=== PATIENT | male | born 1980 | race Caucasian/White ===

== ENCOUNTER 2019-08-03 08:37 | Emergency (ER) | payer OTHER, SELFPAY ==
[2019-08-03] VITALS (11 sets, daily range): BP systolic 127–143; BP diastolic 77–96; PULSE 99–135; RESP 20–34; TEMP 36.6–36.7; O2SAT 95–99; BMI 25.0
--- NOTE | 2019-08-03 08:57 | PC.NURSE ---
right jaw with swelling, redness right side of neck, hard to palpate.
[2019-08-03] MEDS: SODIUM CHLORIDE 0.9% 1,000 ML 1000 ML IV ×2 (09:09→14:56)
[2019-08-03] MEDS: DEXAMETHASONE 10 MG/ML VIAL IV (09:09)
[2019-08-03 09:13] LABS: Hemoglobin 15.7 g/dL (13.5-17.5); Mean Corpuscular HGB Conc 34.9 % (30-36); Mean Corpuscular Hemoglobin 32.8 PG (26-34); Mean Corpuscular Volume 93.8 fL (80-100); Platelet Count 433 X10^3/uL (150-400); Red Blood Cell Count 4.79 X10^6/uL (4.5-5.9); Red Cell Distribution Width 12.7 % (11.6-14.8); White Blood Cell Count 29.7 X10^3/uL (4.5-11.0)
[2019-08-03 09:14] LABS: Add Manual Diff / Slide Review YES
[2019-08-03 09:18] LABS: Alanine Aminotransferase 17 IU/L (<50); Albumin 4.7 g/dL (3.5-5.0); Albumin Globulin Ratio 1.2 (1.0-2.8); Alkaline Phosphatase 114 U/L (38-126); Aspartate Aminotransferase 45 IU/L (17-59); BUN Creatinine Ratio 11.1 (6-22); Bilirubin Total 1.6 mg/dL (0.2-1.3); Blood Urea Nitrogen 10 mg/dL (9-20); Calcium 9.9 mg/dL (8.4-10.2); Carbon Dioxide 28 mmol/L (22-32); Chloride 96 mmol/L (98-107); Estimated Glomerular Filt Rate > 60.0 mL/min (>60); Globulin 3.9 g/dL (1.7-4.1); Glucose 143 mg/dL (70-100); HEMOLYSIS < 15 (0-50); Potassium 3.6 mmol/L (3.4-5.1); Sodium 136 mmol/L (137-145); Total Protein 8.6 g/dL (6.3-8.2)
[2019-08-03 09:36] LABS: Neutrophils Absolute Manual 24948 /uL (3000-5900); RBC Morphology Normal Morphology; Total Cells Counted 100
--- NOTE | 2019-08-03 09:41 | ED.DENTAL ---
HPI - Dental/Oral General Chief complaint: Dental/Oral Stated complaint: infected abcess Time Seen by Provider: 08/03/19 09:00 Source: patient Mode of arrival: Ambulatory History of Present Illness HPI Narrative: Patient comes emergency department complaining swelling below his right mandible that has been worsening over the last few days. Patient states he has a severely decayed right mandibular molar, which has been bothering him a lot over the last 3 weeks. He states he went through 1 course of antibiotics and the pain and swelling dissipated for about a week afterward. However, he states that about 3 days ago, the symptoms began to recur, and so he saw his doctor on [facility] and was started on antibiotics yesterday. Patient states he has had 2 doses of each of his antibiotics, plus an IM dose yesterday, but that the swelling seems to be worsening. Patient states he noticed that the side of his neck and beneath his mandible has become hard and it hurts to swallow. He states he is able to manage his secretions okay, but he feels that the swollen area is impinging on his airway somewhat. Related Data Home Medications Medication Instructions Recorded Confirmed amoxicillin-pot clavulanate 1 tab PO BID 08/03/19 08/03/19 metronidazole 500 mg PO TID 08/03/19 08/03/19 ondansetron 4 mg PO Q8H PRN 08/03/19 08/03/19 Allergies Allergy/AdvReac Type Severity Reaction Status Date / Time No Known Drug Allergies Allergy Verified 08/03/19 08:46 Review of Systems Constitutional Constitutional: Denies chills, Denies fatigue, Denies fever(s), Denies frequent falls, Denies lethargy and Denies weakness Eyes Eyes: Denies change in vision, Denies eye discharge, Denies irritation and Denies loss of vision ENT Ears, Nose, Mouth, and Throat: Denies change in voice, Denies dizziness, Reports neck pain, Denies sore throat and Reports throat swelling Cardiovascular Cardiovascular: Denies chest pain, Denies irregular heart rhythm, Denies lightheadedness, Denies palpitations, Denies dyspnea, Denies dyspnea on exertion and Denies orthopnea Respiratory Respiratory: Denies cough, Denies dyspnea, Denies dyspnea on exertion and Denies wheezing Gastrointestinal Gastrointestinal: Denies abdominal pain, Denies change in bowel habits, Denies diarrhea, Denies nausea and Denies vomiting Genitourinary Genitourinary: Denies hematuria, Denies flank pain, Denies urinary incontinence and Denies urinary urgency Musculoskeletal Musculoskeletal: Denies back pain, Denies muscle weakness, Reports neck pain, Denies numbness and Denies tingling Integumentary/Breasts Skin/Breast: Denies pruritus, Denies erythema, Denies rash and Denies wounds Neurologic Neurologic: Denies behavioral changes, Denies confusion, Denies dizziness, Denies frequent falls, Denies loss of vision, Denies numbness, Denies tingling and Denies weakness Psychiatric Psychiatric: Denies anxiety, Denies behavioral changes, Denies confusion, Denies depression, Denies homicidal ideation and Denies suicidal ideation Endocrine Endocrine: Denies fatigue, Denies flushing and Denies palpitations Hematologic/Lymphatic Hematologic/Lymphatic: Denies easy bruising Allergic/Immunologic Allergic/Immunologic: Denies urticaria, Reports throat swelling and Denies wheezing Patient History Medical History Healthy adult (Acute) Social History Smoking Status: Current every day smoker Smoking Status: Current every day smoker Alcohol type: beer Substance Use Type: marijuana Exam Narrative Exam Narrative: HEENT exam continued: Patient has marked edema and induration with mild erythema over his right mandibular area extending into his right lateral neck. The maxillary area is not involved. Patient has trismus and is not able to open his mouth and separate his teeth more than a cm. As such, the floor of his mouth is not able to be examined. However, there is no obvious elevation of his tongue. The patient is handling his secretions well and voice is normal. Very firm induration is noted inferior to the patient's mandible and over his lateral neck on the right, extending to just posterior to the inferior portion of his right ear. No fluctuance is noted. Initial Vital Signs Initial Vital Signs: Vital Signs Temperature 97.8 F 08/03/19 08:46 Pulse Rate 135 H 08/03/19 08:46 Respiratory Rate 20 08/03/19 08:46 Blood Pressure 127/89 08/03/19 08:46 Pulse Oximetry 99 08/03/19 08:46 Const General: cooperative and well developed Nutritional Appearance: well nourished Orientation: alert, awake, oriented x3 and not confused [facility] Head: normocephalic and atraumatic Ears: external ears normal Nose: external nose normal and No nasal discharge Face and sinus: sinuses nontender, no sinus tenderness and No dry mucous membranes Mouth: oral mucosae normal and moist mucous membranes Teeth and gingiva: dentition normal Eyes General: appearance normal, both eyes and all related structures Eyelids: eyelids normal Conjunctivae: conjunctivae normal Sclera: sclerae normal Pupils: PERRL EOM: EOM intact bilaterally Neck Neck: trachea midline, No lymphadenopathy, No midline deformity and No JVD Lymphatic: No lymphedema Other: No stridor. No tracheal deviation. Patient has induration of the right lateral neck, as noted above. Chest Chest: normal inspection of the chest Resp Effort & Inspection: normal respiratory effort, able to speak in complete sentences, no respiratory distress and no use of accessory muscles Auscultation: clear to auscultation bilaterally, no rales, no rhonchi and no wheezes Other: The patient is in no distress. He is moving air well and voice is normal. Cardio Rate: regular rate Rhythm: regular rhythm Heart Sounds: no click, no gallops, no murmurs and no rubs Pulses: normal peripheral pulses GI Inspection: non-distended Palpation: soft, no hepatosplenomegaly, No guarding, No pulsatile mass and No tender Back/Spine/Pelvis Back: No CVA tenderness Cervical Spine: cervical ROM normal and No pain with cervical ROM Thoracic/Lumbar Spine: thoracic and lumbar spine normal to inspection Skin General: no rashes or lesions noted, No jaundice and No petechiae Neuro General: alert, oriented x3, gait normal and no focal motor deficits Speech: speech normal Extrem General: full ROM, no clubbing, cyanosis or edema, no pedal edema and no calf tenderness Psych Appearance: well kempt Mental Status: mental status grossly normal Attitude: cooperative Thought Content: normal and suicidality Judgment: judgment good Course Course Course Narrative: The patient had no airway compromise at this time, and was handling secretions well with normal phonation, but I was concerned about the amount of induration and the extent of the patient's findings on exam. Due to the proximity the patient's airway, he was given IV Decadron and I ordered IV Unasyn for the patient, as well. He was sent for a contrast CT of his neck to get a better idea of the extent of abscess. This did show extensive soft tissue swelling and a 7 by 3-1/2 by 3.5 cm abscess surrounding the mandible and involving the submandibular area and lateral neck. There was noted to be some tracheal deviation on CT, though the airway was patent. The patient remained stable throughout his stay in the emergency department. I spoke with Dr. Buck of ENT, who stated that the patient would be better off going to somewhere with oral maxillofacial surgery, so I spoke with Dr. Walter at [facility] and he did agree to accept the patient in transfer. The patient remained stable throughout his stay in the emergency department, and did not have any further progression of the swelling or the airway discomfort. Orders Ordered: Discontinued Medications Dexamethasone (Decadron) 10 mg IV NOW ONE Stop: 08/03/19 09:03 Last Admin: 08/03/19 09:09 Dose: 10 mg Documented by: VON Sodium Chloride (Normal Saline 0.9%) 1,000 mls @ 1,000 mls/hr IV BOLUS ONE Stop: 08/03/19 10:01 Last Infusion: 08/03/19 10:33 Dose: 0 mls/hr Documented by: Admin: 08/03/19 09:09 Dose: 1,000 mls/hr Documented by: VON Ampicillin Sodium/Sulbactam (Sodium 3 gm/ Sodium Chloride) 100 mls @ 100 mls/hr IV NOW ONE Stop: 08/03/19 09:50 Last Infusion: 08/03/19 12:41 Dose: 0 mls/hr Documented by: Admin: 08/03/19 10:32 Dose: 100 mls/hr Documented by: VON Sodium Chloride (Normal Saline 0.9%) 1,000 mls @ 1,000 mls/hr IV BOLUS ONE Stop: 08/03/19 15:23 Last Admin: 08/03/19 14:56 Dose: 1,000 mls/hr Documented by: VON Lorazepam (Ativan) 0.5 mg IV NOW ONE Stop: 08/03/19 14:48 Last Admin: 08/03/19 14:57 Dose: 0.5 mg Documented by: VON Vital Signs Vital signs: Vital Signs - 8 hr 08/03/19 08:46 08/03/19 10:16 08/03/19 10:50 Temperature 97.8 F Pulse Rate 135 H 99 H 99 H Respiratory Rate 20 34 H 26 H Blood Pressure 127/89 Blood Pressure [Right Arm] 133/81 138/86 Pulse Oximetry 99 99 95 08/03/19 11:20 08/03/19 11:50 08/03/19 12:20 Temperature Pulse Rate 99 H 107 H 107 H Respiratory Rate 22 23 26 H Blood Pressure Blood Pressure [Right Arm] 133/83 136/86 129/81 Pulse Oximetry 95 95 95 08/03/19 12:50 08/03/19 13:20 08/03/19 13:50 Temperature Pulse Rate 106 H 102 H 100 H Respiratory Rate 27 H 23 25 H Blood Pressure Blood Pressure [Right Arm] 135/90 134/83 143/96 H Pulse Oximetry 95 95 95 MDM - Dental/Oral Medical Records Attestation: I reviewed the patient's medical records. Lab Data Attestation: I reviewed the patient's lab results. Result diagrams: 08/03/19 08:51 08/03/19 08:51 Labs: Lab Results 08/03/19 08/03/19 Range/Units 08:51 08:51 WBC 29.7 H (4.5-11.0) X10^3/uL RBC 4.79 (4.5-5.9) X10^6/uL Hgb 15.7 (13.5-17.5) g/dL Hct 45.0 (41-53) % MCV 93.8 (80-100) fL MCH 32.8 (26-34) PG MCHC 34.9 (30-36) % RDW 12.7 (11.6-14.8) % Plt Count 433 H (150-400) X10^3/uL Neut % (Auto) Not Reportable Lymph % (Auto) Not Reportable [place] % (Auto) Not Reportable Eos % (Auto) Not Reportable Baso % (Auto) Not Reportable Lymph # (Auto) Not Reportable [place] # (Auto) Not Reportable Baso # (Auto) Not Reportable Total Counted 100 Seg Neutrophils % 70.0 (38-70) % Band Neutrophils % 14.0 H (3-7) % Lymphocytes % (Manual) 5.0 L (25-45) % Monocytes % (Manual) 11.0 (2-11) % Neutrophils # (Manual) 54646 H (2909-3658) /uL RBC Morphology Normal morphology Sodium 136 L (137-145) mmol/L Potassium 3.6 (3.4-5.1) mmol/L Chloride 96 L (98-107) mmol/L Carbon Dioxide 28 (22-32) mmol/L BUN 10 (9-20) mg/dL Creatinine 0.90 (0.66-1.25) mg/dL Estimated GFR > 60.0 (>60) mL/min BUN/Creatinine Ratio 11.1 (6-22) Glucose 143 H (70-100) mg/dL Calcium 9.9 (8.4-10.2) mg/dL Total Bilirubin 1.6 H (0.2-1.3) mg/dL AST 45 (17-59) IU/L ALT 17 (<50) IU/L Alkaline Phosphatase 114 (38-126) U/L Total Protein 8.6 H (6.3-8.2) g/dL Albumin 4.7 (3.5-5.0) g/dL Globulin 3.9 (1.7-4.1) g/dL Albumin/Globulin Ratio 1.2 (1.0-2.8) Imaging Data CT soft tissue neck: Radiologist's Impression: PROCEDURE: CT SOFT TISSUE NECK W CON INDICATIONS: Right sided dental infection, severe swelling TECHNIQUE: After the administration of intravenous contrast, 3.0 mm axial sections acquired from the sella to the aortic arch. Additional oblique axial 3.0 mm sections acquired through the pharynx. 3 mm thick coronal and sagittal reformats were generated. For radiation dose reduction, the following was used: automated exposure control. COMPARISON: None. FINDINGS: Image quality: Excellent. Lymph nodes: Mildly enlarged right cervical lymph nodes are seen. For instance, there is a 1.4 x 2.1 cm right submandibular lymph node. A couple of enlarged level III cervical lymph nodes measure 1.5 cm and 1.04 cm in short axis. Vessels: Visualized vasculature appears patent. Neck spaces: There is an irregular fluid collection over the right mandible measuring 3.4 x 7.1 x 3.7 cm, demonstrating subtle peripheral enhancement, suspicious for an abscess. Superficial soft tissue swelling in the right jaw is consistent with cellelitis. The oropharynx, nasopharynx, and pharynx demonstrate no mucosal lesions. The vocal cords, false vocal cords, pyriform sinuses, epiglottis, vallecula, and tongue base all appear normal. Extramucosal spaces appear unremarkable. Glands: The parotid and submandibular glands appear normal. Thyroid gland is normal. Miscellaneous: Visualized brain and orbits appear normal. Lung apices appear clear. Superficial soft tissues appear normal. There is enlargement and decreased attenuation and enhancement in tmd teacher assistant muscle. Bones: No suspicious bony lesions. Degenerative disc and facet disease in cervical spine. Visualized sinuses and mastoids appear unremarkable. IMPRESSION: 1. A 3.4 x 7.1 x 3.7 cm irregular fluid collection over the right mandible with subtle peripheral enhancement, suspicious for an abscess. 2. Superficial soft tissue swelling in the right jaw is consistent with cellelitis. 3. Right cervical lymph adnopathy, most likely reactive. 4. Enlargement and decreased attenuation and enhancement in tmd teacher assistant muscle, consistent with spread of infection/inflammation. Dictated by: Corey Faith M.D. on 08/03/2019 at 10:43 Approved by: Corey Faith M.D. on 08/03/2019 at 11:05 Discharge Plan Departure Patient Disposition: [facility] Clinical Impression: Abscess, dental, Abscess, neck Discharge Date/Time: 08/03/19 15:31 Prescriptions: No Action metronidazole 500 mg tablet 500 mg PO TID RF: 0 amoxicillin-pot clavulanate 875-125 mg tablet 1 tab PO BID RF: 0 ondansetron 4 mg Tablet,Disintegrating 4 mg PO Q8H PRN (Reason: Nausea) RF: 0
[2019-08-03] MEDS: AMPICILLIN/SULBACTAM 3 GM 3 GM in SODIUM CHLORIDE 0.9% 100 ML IV (10:32)
[2019-08-03] MEDS: LORazepam 2 MG/ML INJ 0.5 MG IV (14:57)
--- NOTE | 2019-08-03 15:14 | PC.NURSE ---
1445 Patient is drenched in sweat, clothing and bed linens had to be changed and he gave himself a wipe down with some wipes. He is still mildly pale and tremorous. Afebrile still at 98.1 F. He reports he drinks 6 or more 12oz PBR beer nightly and has not gone a day without drinking in years. I asked if he has ever had withdrawal symptoms before and reports he is unsure. I spoke with Dr. Lopez who states we can medicate him with a small amount of ativan in case his tachycardia, sweating, and shakiness is from withdrawal symptoms and not just infection/fevers.
--- NOTE | 2019-09-18 01:24 | PC.NURSE ---
Patient completed full Liter of saline that was started at 1426. It was completed at 1530 upon transfer to [facility] on 07/26/19.
== END 2019-08-03 15:31 | disposition short-term general hospital (02) ==
PROVIDERS: Emergency Provider Emergency Medicine
DX: K04.7 Periapical abscess without sinus (principal); L02.11 Cutaneous abscess of neck
CPT/HCPCS: 36415; 70491; 80053; 85025; 93005; 96361; 96365; 96366; 96375; 99284; 99285; J0295; J1100; J2060; Q9967